=== PATIENT | female | born 1950 | race Caucasian/White ===

== ENCOUNTER 2020-07-07 06:00 | Outpatient (RCR) | payer MEDICARE, OTHER, SELFPAY | END 2020-07-13 23:59 | disposition home or self-care (01) | LOC: GPT 06:00 | PROVIDERS: PCP Family Medicine; Referring Provider Nurse Practitioner Family; Visit Provider Nurse Practitioner Family | DX: M47.816 Spondylosis without myelopathy or radiculopathy, lumbar region (principal) | CPT/HCPCS: 97032; 97110; 97161; 97530 ==

== ENCOUNTER 2020-07-14 06:00 | Outpatient (RCR) | payer MEDICARE, OTHER, SELFPAY | END 2020-08-12 23:59 | disposition home or self-care (01) | LOC: GPT 06:00 | PROVIDERS: PCP Family Medicine; Referring Provider Nurse Practitioner Family; Visit Provider Nurse Practitioner Family | DX: M47.816 Spondylosis without myelopathy or radiculopathy, lumbar region (principal) | CPT/HCPCS: 97032; 97110; 97140; 97530 ==

== ENCOUNTER 2024-02-26 06:00 | Outpatient (RCR) | payer MEDICARE, OTHER, SELFPAY | END 2024-03-12 23:59 | disposition home or self-care (01) | LOC: GPT 06:00 | PROVIDERS: Visit Provider Family Medicine | DX: M54.32 Sciatica, left side (principal) | CPT/HCPCS: 97110; 97140; 97161 ==

== ENCOUNTER 2024-03-13 06:00 | Outpatient (RCR) | payer MEDICARE, OTHER, SELFPAY | END 2024-04-12 23:59 | disposition home or self-care (01) | LOC: GPT 06:00 | PROVIDERS: Visit Provider Family Medicine | DX: M54.32 Sciatica, left side (principal) | CPT/HCPCS: 97110 ==

== ENCOUNTER 2024-04-13 06:00 | Outpatient (RCR) | payer MEDICARE, OTHER, SELFPAY | END 2024-04-30 23:59 | disposition home or self-care (01) | LOC: GPT 06:00 | PROVIDERS: Visit Provider Family Medicine | DX: M54.32 Sciatica, left side (principal) | CPT/HCPCS: 97110; 97164 ==